=== PATIENT | male | born 1975 | race Caucasian/White ===

== ENCOUNTER 2020-03-06 13:16 | Emergency (ER) | payer OTHER, MEDICAID, SELFPAY ==
[2020-03-06] VITALS (8 sets, daily range): BP systolic 135–167; BP diastolic 60–88; PULSE 87–108; RESP 14–31; TEMP 36.6; O2SAT 94–97
--- NOTE | 2020-03-06 13:32 | ED_ITS ---
HPI - Nausea/Vomiting/Diarrhea <FUENTES Mcginnis - Last Filed: 03/06/20 15:48> General Chief complaint: Nausea/Vomiting/Diarrhea Stated complaint: nausea,vomiting Time Seen by Provider: 03/06/20 13:20 Source: patient and family Mode of arrival: Ambulatory Limitations: no limitations History of Present Illness HPI Narrative: The patient is a 44-year-old male nonsmoker with history of h ypertension who presents with his for multiple complaints. He states he passed out for few seconds while cutting blackberry bushes in his yard on Thursday. His witnessed this. They did not get help at that point time that he has not been evaluated since. Patient also notes that he has had consistent nausea, vomiting, diarrhea and abdominal distention ongoing for several months. He has not followed up with primary care provider regarding this. He denies any fevers, chest pain, states that he is short of breath with activity because ?I am a smoker. Related Data Previous Rx's Medication Instructions Recorded hydrochlorothiazide 12.5 mg PO QDAY 30 Days #0 cap 07/05/16 ondansetron 4 mg PO Q6H PRN #14 tab 03/06/20 Allergies Allergy/AdvReac Type Severity Reaction Status Date / Time Penicillins [PENICILLINS] Allergy Unknown Unverified 10/14/17 12:15 Review of Systems <FUENTES Mcginnis - Last Filed: 03/06/20 15:48> Review of Systems Narrative: GENERAL: Denies chills, fatigue, malaise, fever, sweats. HEENT: Denies sinus pain, ear pain, sore throat, difficulty swallowing, dizziness. RESPIRATORY: Denies dyspnea, cough, wheezing, hemoptysis, sputum. CARDIOVASCULAR: Denies chest pain, palpitations, orthopnea, edema, GASTROINTESTINAL: See HPI : Denies dysuria, frequency, incontinence, hematuria, urinary retention. MUSCULOSKELETAL: denies weakness, joint pain, or bony pain SKIN: Denies rash, skin lesions, or other NEUROLOGIC: See HPI PSYCHIATRIC: No concerning psychosocial issues. 12 point review of systems is negative except for those stated above Patient History <FUENTES Mcginnis - Last Filed: 03/06/20 15:48> Medical History (Updated 03/06/20 @ 15:32 by FUENTES Mcginnis) Hypertension (Acute) Social History Smoking Status: Never smoker Smoking Status: Never smoker Exam <FUENTES Mcginnis - Last Filed: 03/06/20 15:48> Narrative Exam Narrative: GENERAL: This is a well-nourished, well-developed patient, no acute distress HEAD: Atraumatic. Normocephalic. No temporal or scalp tenderness. EYES: Pupils equal round and reactive. Extraocular motions intact. No scleral icterus. No injection or drainage. ENT: Nose without bleeding, purulent drainage or septal hematoma. Throat without erythema, tonsillar hypertrophy or exudate. Uvula midline. Airway patent. NECK: Trachea midline. No JVD or lymphadenopathy. Supple, nontender, no meningeal signs. CARDIOVASCULAR: Regular rate and rhythm RESPIRATORY: Clear to auscultation. Breath sounds equal bilaterally. No wheezes, rales, or rhonchi. No cough. No increased respiratory effort. No accessory muscle use. GASTROINTESTINAL: Abdomen slightly distended, diffusely tender to palpation, active bowel sounds all 4 quadrants. No hepato-splenomegaly, or palpable masses. No guarding. EXTREMITIES: No clubbing, cyanosis, or edema. No joint tenderness, effusion, or edema noted. BACK: Nontender without deformity or crepitance. No flank tenderness. NEURO: AOx3. SKIN: No rash or erythema on visible skin Initial Vital Signs Initial Vital Signs: Vital Signs Temperature 97.8 F 03/06/20 13:20 Pulse Rate 108 H 03/06/20 13:20 Respiratory Rate 22 03/06/20 13:20 Blood Pressure 167/88 H 03/06/20 13:20 Pulse Oximetry 97 03/06/20 13:20 <Mami Adams DO - Last Filed: 03/07/20 07:14> Initial Vital Signs Initial Vital Signs: Vital Signs Temperature 97.8 F 03/06/20 13:20 Pulse Rate 108 H 03/06/20 13:20 Respiratory Rate 22 03/06/20 13:20 Blood Pressure 167/88 H 03/06/20 13:20 Pulse Oximetry 97 03/06/20 13:20 Scores <FUENTES Mcginnis - Last Filed: 03/06/20 15:48> GCS Geronimo coma scale eye opening: Spontaneous Geronimo coma scale verbal response: Orientated [place] coma scale motor response: Obey commands Geronimo coma scale total score: 15 Course <Suzan GARETT MortonP-BC - Last Filed: 03/06/20 15:48> Orders Ordered: Discontinued Medications Sodium Chloride (Normal Saline 0.9%) 1,000 mls @ 1,000 mls/hr IV BOLUS ONE Stop: 03/06/20 14:29 Last Infusion: 03/06/20 14:47 Dose: 0 mls/hr Documented by: Admin: 03/06/20 13:40 Dose: 1,000 mls/hr Documented by: DOLORES Ondansetron HCl (Zofran) 4 mg IV NOW ONE Stop: 03/06/20 13:31 Last Admin: 03/06/20 13:40 Dose: 4 mg Documented by: DOLORES Vital Signs Vital signs: Vital Signs - 8 hr 03/06/20 13:20 03/06/20 13:24 03/06/20 13:30 Temperature 97.8 F Pulse Rate 108 H 108 H 100 H Respiratory Rate 22 16 Blood Pressure 167/88 H 152/86 H 143/82 H Pulse Oximetry 97 97 95 03/06/20 14:00 03/06/20 14:01 03/06/20 14:30 Temperature Pulse Rate 87 87 92 H Respiratory Rate 14 16 15 Blood Pressure 135/60 Pulse Oximetry 95 95 94 03/06/20 14:31 03/06/20 15:00 Temperature Pulse Rate 94 H 93 H Respiratory Rate 18 31 H Blood Pressure 146/75 H Pulse Oximetry 95 95 <Mami Adams DO - Last Filed: 03/07/20 07:14> Orders Ordered: Discontinued Medications Sodium Chloride (Normal Saline 0.9%) 1,000 mls @ 1,000 mls/hr IV BOLUS ONE Stop: 03/06/20 14:29 Last Infusion: 03/06/20 14:47 Dose: 0 mls/hr Documented by: Admin: 03/06/20 13:40 Dose: 1,000 mls/hr Documented by: DOLORES Ondansetron HCl (Zofran) 4 mg IV NOW ONE Stop: 03/06/20 13:31 Last Admin: 03/06/20 13:40 Dose: 4 mg Documented by: DOLORES Vital Signs Vital signs: Vital Signs - 8 hr 03/06/20 13:20 03/06/20 13:24 03/06/20 13:30 Temperature 97.8 F Pulse Rate 108 H 108 H 100 H Respiratory Rate 22 16 Blood Pressure 167/88 H 152/86 H 143/82 H Pulse Oximetry 97 97 95 03/06/20 14:00 03/06/20 14:01 03/06/20 14:30 Temperature Pulse Rate 87 87 92 H Respiratory Rate 14 16 15 Blood Pressure 135/60 Pulse Oximetry 95 95 94 03/06/20 14:31 03/06/20 15:00 Temperature Pulse Rate 94 H 93 H Respiratory Rate 18 31 H Blood Pressure 146/75 H Pulse Oximetry 95 95 MDM - Nausea/Vomiting/Diarrhea <EDIE Mcginnis- - Last Filed: 03/06/20 15:48> Lab Data Attestation: I reviewed the patient's lab results. Result diagrams: 03/06/20 13:32 03/06/20 13:32 Labs: Lab Results 03/06/20 03/06/20 03/06/20 Range/Units 13:32 13:32 13:32 WBC 6.2 (4.5-11.0) X10^3/uL RBC 4.47 L (4.5-5.9) X10^6/uL Hgb 14.9 (13.5-17.5) g/dL Hct 42.8 (41-53) % MCV 95.8 (80-100) fL MCH 33.4 (26-34) PG MCHC 34.9 (30-36) % RDW 12.8 (11.6-14.8) % Plt Count 197 (150-400) X10^3/uL Neut % (Auto) 59.1 (50-75) % Lymph % (Auto) 26.3 (25-40) % Hughes % (Auto) 12.8 (3-14) % Eos % (Auto) 1.6 L (2-4) % Baso % (Auto) 0.2 (0-2) % Neut # (Auto) 3700 (3889-8328) /uL Lymph # (Auto) 1600 (1848-7418) /uL Hughes # (Auto) 800 (0-900) /uL Eos # (Auto) 100 (0-450) /uL Baso # (Auto) 0 (0-100) /uL PT 10.7 (10.1-12.7) SECONDS INR 0.9 (0.9-1.3) APTT 28 (26.4-36.2) SECONDS D-Dimer < 200 (<230) ng/mL Sodium 133 L (137-145) mmol/L Potassium 4.5 (3.4-5.1) mmol/L Chloride 101 (98-107) mmol/L Carbon Dioxide 25 (22-32) mmol/L BUN 14 (9-20) mg/dL Creatinine 0.96 (0.66-1.25) mg/dL Estimated GFR > 60.0 (>60) mL/min BUN/Creatinine Ratio 14.6 (6-22) Glucose 115 H (70-100) mg/dL Calcium 9.0 (8.4-10.2) mg/dL Total Bilirubin 0.9 (0.2-1.3) mg/dL AST 83 H (17-59) IU/L ALT 81 H (<50) IU/L Alkaline Phosphatase 74 (38-126) U/L Total Creatine Kinase 282 H (55-170) U/L CK-MB (CK-2) 1.32 (<2.37) ng/mL CK-MB (CK-2) Rel Index 0.5 L (1.5-5.0) % Troponin I < 0.012 (0.01-0.034) ng/mL Total Protein 6.8 (6.3-8.2) g/dL Albumin 3.9 (3.5-5.0) g/dL Globulin 2.9 (1.7-4.1) g/dL Albumin/Globulin Ratio 1.3 (1.0-2.8) Lipase 354 H (23-300) U/L Urine Dip Bedside Urine Glucose Negative Bedside Urine Bilirubin - Negative Bedside Urine Ketone - Negative Urine Specific [place] 1.015 Bedside Urine Occult Blood - Negative Bedside Urine Protein - Negative Bedside Urine Urobilinogen - Negative Bedside Urine Nitrite - Negative Bedside Urine Leukocytes - Negative Esterase Imaging Data Chest x-ray: Radiologist's Impression: [facility] [address] [place] [id number] XRay Report Signed Patient: Lisa Mojica#: [id number] : 1975Acct:[id number] Age/Sex: 44 / MDate of Service: 03/06/20 Loc: ED Accession Number: [id number] Procedure: XR chest 1V Ordering Provider: Suzan Morton PROCEDURE: XR CHEST 1V INDICATIONS: syncope TECHNIQUE: One view of the chest was acquired. COMPARISON: [facility], CHEST 1 VIEW, 07/05/2016, 17:54. FINDINGS: Surgical changes and devices: None. Lungs and pleura: Lungs are clear. No pleural effusions or pneumothorax. Mediastinum: Mediastinal contours appear normal. Heart size is normal. Bones and chest wall: No suspicious bony lesions. Overlying soft tissues appear unremarkable. IMPRESSION: Normal for age, source of current syncope symptoms is not seen. Dictated by: Clint Montalvo M.D. on 03/06/2020 at 14:06 Approved by: Clint Montalvo M.D. on 03/06/2020 at 14:07 CT scan - abdomen/pelvis: Radiologist's Impression: [address] [place] [address] CT Scan Report Signed Patient: Lisa Mojica#: [id number] : 1975Acct:[id number] Age/Sex: 44 / MDate of Service: 03/06/20 Loc: ED Accession Number: [id number] Procedure: CT abdomen pelvis w con Ordering Provider: Suzan Morton PROCEDURE: CT ABDOMEN PELVIS W CON INDICATIONS: abd pain, n/v/d x months TECHNIQUE: After the administration of intravenous contrast, 5 mm thick sections acquired from the diaphragm to the symphysis. 5 mm coronal and sagittal reformats were acquired. For radiation dose reduction, the following was used: automated exposure control, adjustment of mA and/or kV according to patient size. COMPARISON: None. FINDINGS: Image quality: Excellent. ABDOMEN: Lung bases: Lung bases are clear. Heart size is normal. Solid organs: Liver is normal in size and enhancement. Question mild surface nodularity. No suspicious masses. Mild diffuse hepatic steatosis. Gallbladder is unremarkable. Biliary system is non dilated. Pancreas enhances normally. Spleen is normal in size and enhancement. No adrenal nodules. Kidneys demonstrate normal size and enhancement, without hydronephrosis. Peritoneum and bowel: Bowel loops demonstrate normal wall thickness and caliber. No free fluid or air. Nodes and vessels: No retroperitoneal or mesenteric adenopathy by size criteria. Aorta and inferior vena cava are normal in size. Miscellaneous: No ventral hernias. PELVIS: Genitourinary: Bladder wall thickness is normal. Miscellaneous: No inguinal hernias or adenopathy. Bones: No suspicious bony lesions. No vertebral body compression fractures. Bilateral L5 pars defects with minimal anterolisthesis of L5 on S1. Bilateral L5-S1 foraminal narrowing. IMPRESSION: 1. Mild diffuse hepatic steatosis. 2. Question mild surface nodularity of the liver suggesting possible cirrhotic change. 3. Incidental note made of bilateral L5 pars defects with minimal anterolisthesis of L5 on S1. Dictated by: Jorge Gill M.D. on 03/06/2020 at 14:24 Approved by: Jorge Gill M.D. on 03/06/2020 at 14:27 ECG Data Attestation: I personally reviewed and interpreted this ECG as follows: Interpretation: Sinus rhythm. Ventricular rate 93. P.r. interval 152. QRS 90. viewed by Dr Adams MDM Narrative Medical decision making narrative: The patient is a 44-year-old male who presents with a chief complaint of syncope several days ago as well as nausea vomiting diarrhea that has been ongoing for several months this point. He appears well, nontoxic, is afebrile in no acute pain. EKG has no changes, troponin is negative. Will not repeat troponin as patient several days from his syncopal event. I discussed with patient the early possible cirrhotic findings and slightly elevated LFTs, and he admits to drinking about a 5th of hard alcohol per day. I encouraged him to decrease his drinking and follow up with primary care provider in the next few days. She does not believe that is old PCPs taking his new insurance, so given contact information to the [facility] health natural resources specialist. The patient is pain-free and hemodynamically stable throughout stay in the emergency department with no complaints or request. He was able to tolerate a p.o. trial prior to discharge, keeping down solids and liquids. He felt improved with Zofran, so I gave him a prescription thereof. Patient have no questions or concerns upon discharge and state understanding of return precautions as well as follow-up care. I did encourage and that if he has a syncopal event to seek help immediately rather than waiting several days. <Mami Adams, DO - Last Filed: 03/07/20 07:14> Lab Data Labs: Lab Results 03/06/20 03/06/20 03/06/20 Range/Units 13:32 13:32 13:32 WBC 6.2 (4.5-11.0) X10^3/uL RBC 4.47 L (4.5-5.9) X10^6/uL Hgb 14.9 (13.5-17.5) g/dL Hct 42.8 (41-53) % MCV 95.8 (80-100) fL MCH 33.4 (26-34) PG MCHC 34.9 (30-36) % RDW 12.8 (11.6-14.8) % Plt Count 197 (150-400) X10^3/uL Neut % (Auto) 59.1 (50-75) % Lymph % (Auto) 26.3 (25-40) % Hughes % (Auto) 12.8 (3-14) % Eos % (Auto) 1.6 L (2-4) % Baso % (Auto) 0.2 (0-2) % Neut # (Auto) 3700 (2366-0366) /uL Lymph # (Auto) 1600 (8056-0104) /uL Hughes # (Auto) 800 (0-900) /uL Eos # (Auto) 100 (0-450) /uL Baso # (Auto) 0 (0-100) /uL PT 10.7 (10.1-12.7) SECONDS INR 0.9 (0.9-1.3) APTT 28 (26.4-36.2) SECONDS D-Dimer < 200 (<230) ng/mL Sodium 133 L (137-145) mmol/L Potassium 4.5 (3.4-5.1) mmol/L Chloride 101 (98-107) mmol/L Carbon Dioxide 25 (22-32) mmol/L BUN 14 (9-20) mg/dL Creatinine 0.96 (0.66-1.25) mg/dL Estimated GFR > 60.0 (>60) mL/min BUN/Creatinine Ratio 14.6 (6-22) Glucose 115 H (70-100) mg/dL Calcium 9.0 (8.4-10.2) mg/dL Total Bilirubin 0.9 (0.2-1.3) mg/dL AST 83 H (17-59) IU/L ALT 81 H (<50) IU/L Alkaline Phosphatase 74 (38-126) U/L Total Creatine Kinase 282 H (55-170) U/L CK-MB (CK-2) 1.32 (<2.37) ng/mL CK-MB (CK-2) Rel Index 0.5 L (1.5-5.0) % Troponin I < 0.012 (0.01-0.034) ng/mL Total Protein 6.8 (6.3-8.2) g/dL Albumin 3.9 (3.5-5.0) g/dL Globulin 2.9 (1.7-4.1) g/dL Albumin/Globulin Ratio 1.3 (1.0-2.8) Lipase 354 H (23-300) U/L Urine Dip Bedside Urine Glucose Negative Bedside Urine Bilirubin - Negative Bedside Urine Ketone - Negative Urine Specific [place] 1.015 Bedside Urine Occult Blood - Negative Bedside Urine Protein - Negative Bedside Urine Urobilinogen - Negative Bedside Urine Nitrite - Negative Bedside Urine Leukocytes - Negative Esterase Discharge Plan Departure Patient Disposition: Home Clinical Impression: Nausea, vomiting and diarrhea Syncope Qualifiers: Syncope type: unspecified Qualified Code(s): R55 - Syncope and collapse Discharge Date/Time: 03/06/20 15:38 Instructions: DI for Syncope in Adults (Fainting), DI for Nausea -- Adult, DI for Vomiting -- Adult Activity Restrictions/Additional Instructions: Thank you for trusting us with your care today. As discussed, your exam, lab work and scans have come back well. Please follow-up with primary care provider. I have given you contact information to the [facility] natural resources specialist. They can help you identify new PCP if your previous PCP does not take your insurance. As discussed, please come back to the emergency department for any acute concerns, including chest pain, shortness of breath, passing out etcetera I sent a prescription of nausea medicine to [facility] in [place] Prescriptions: New ondansetron 4 mg tablet,disintegrating 4 mg PO Q6H PRN (Reason: nausea and vomiting) Qty: 14 RF: 0 No Action hydrochlorothiazide 12.5 MG capsule 12.5 mg PO QDAY 30 Days Qty: 0 RF: 0 Referrals: [facility] [Outside] [place] DO [Non-Staff] - <Mami Adams DO - Last Filed: 03/07/20 07:14> Cosign ED Attending Emmyature Attestation: I was immediately available in the department for consultation. Documentation has been reviewed. I agree with assessment and plan.
[2020-03-06 13:39] LABS: Add Manual Diff / Slide Review NO; Basophils Absolute Auto 0 /uL (0-100); Basophils Percent Auto 0.2 % (0-2); Eosinophils Absolute Auto 100 /uL (0-450); Eosinophils Percent Auto 1.6 % (2-4); Hematocrit 42.8 % (41-53); Hemoglobin 14.9 g/dL (13.5-17.5); Lymphocytes Absolute Auto 1600 /uL (1100-4500); Lymphocytes Percent Auto 26.3 % (25-40); Mean Corpuscular HGB Conc 34.9 % (30-36); Mean Corpuscular Hemoglobin 33.4 PG (26-34); Mean Corpuscular Volume 95.8 fL (80-100); Monocytes Absolute Auto 800 /uL (0-900); Monocytes Percent Auto 12.8 % (3-14); Neutrophils Absolute Auto 3700 /uL (1500-7000); Neutrophils Percent Auto 59.1 % (50-75); Platelet Count 197 X10^3/uL (150-400); Red Blood Cell Count 4.47 X10^6/uL (4.5-5.9); Red Cell Distribution Width 12.8 % (11.6-14.8); White Blood Cell Count 6.2 X10^3/uL (4.5-11.0)
[2020-03-06] MEDS: ONDANSETRON 4 MG/2 ML INJ IV (13:40)
[2020-03-06] MEDS: SODIUM CHLORIDE 0.9% 1,000 ML 1000 ML IV (13:40)
[2020-03-06 13:47] LABS: INR 0.9 (0.9-1.3); Prothrombin Time 10.7 SECONDS (10.1-12.7)
[2020-03-06 13:49] LABS: PTT Partial Thromboplastin Tim 28 SECONDS (26.4-36.2)
[2020-03-06 13:51] LABS: Alanine Aminotransferase 81 IU/L (<50); Albumin 3.9 g/dL (3.5-5.0); Albumin Globulin Ratio 1.3 (1.0-2.8); Alkaline Phosphatase 74 U/L (38-126); Aspartate Aminotransferase 83 IU/L (17-59); BUN Creatinine Ratio 14.6 (6-22); Bilirubin Total 0.9 mg/dL (0.2-1.3); Blood Urea Nitrogen 14 mg/dL (9-20); Carbon Dioxide 25 mmol/L (22-32); Chloride 101 mmol/L (98-107); Creatine Kinase 282 U/L (55-170); Estimated Glomerular Filt Rate > 60.0 mL/min (>60); Globulin 2.9 g/dL (1.7-4.1); Glucose 115 mg/dL (70-100); HEMOLYSIS < 15 (0-50); Lipase 354 U/L (23-300); Potassium 4.5 mmol/L (3.4-5.1); Sodium 133 mmol/L (137-145); Total Protein 6.8 g/dL (6.3-8.2)
[2020-03-06 14:03] LABS: Troponin I < 0.012 ng/mL (0.01-0.034)
[2020-03-06 14:06] LABS: CKMB % Relative Index 0.5 % (1.5-5.0); Creatine Kinase MB 1.32 ng/mL (<2.37)
--- NOTE | 2020-03-06 14:14 | DI.CT.S_ITS ---
PROCEDURE: CT ABDOMEN PELVIS W CON INDICATIONS: abd pain, n/v/d x months TECHNIQUE: After the administration of intravenous contrast, 5 mm thick sections acquired from the diaphragm to the symphysis. 5 mm coronal and sagittal reformats were acquired. For radiation dose reduction, the following was used: automated exposure control, adjustment of mA and/or kV according to patient size. COMPARISON: None. FINDINGS: Image quality: Excellent. ABDOMEN: Lung bases: Lung bases are clear. Heart size is normal. Solid organs: Liver is normal in size and enhancement. Question mild surface nodularity. No suspicious masses. Mild diffuse hepatic steatosis. Gallbladder is unremarkable. Biliary system is non dilated. Pancreas enhances normally. Spleen is normal in size and enhancement. No adrenal nodules. Kidneys demonstrate normal size and enhancement, without hydronephrosis. Peritoneum and bowel: Bowel loops demonstrate normal wall thickness and caliber. No free fluid or air. Nodes and vessels: No retroperitoneal or mesenteric adenopathy by size criteria. Aorta and inferior vena cava are normal in size. Miscellaneous: No ventral hernias. PELVIS: Genitourinary: Bladder wall thickness is normal. Miscellaneous: No inguinal hernias or adenopathy. Bones: No suspicious bony lesions. No vertebral body compression fractures. Bilateral L5 pars defects with minimal anterolisthesis of L5 on S1. Bilateral L5-S1 foraminal narrowing. IMPRESSION: 1. Mild diffuse hepatic steatosis. 2. Question mild surface nodularity of the liver suggesting possible cirrhotic change. 3. Incidental note made of bilateral L5 pars defects with minimal anterolisthesis of L5 on S1. Dictated by: Jorge Gill M.D. on 03/06/2020 at 14:24 Approved by: Jorge Gill M.D. on 03/06/2020 at 14:27
[2020-03-06 14:20] LABS: D Dimer < 200 ng/mL (<230)
== END 2020-03-06 15:38 | disposition home or self-care (01) ==
PROVIDERS: Emergency Provider Nurse Practitioner Family
DX: R11.2 Nausea with vomiting, unspecified (principal); R19.7 Diarrhea, unspecified; I10 Essential (primary) hypertension; R55 Syncope and collapse; R10.9 Unspecified abdominal pain
CPT/HCPCS: 36415; 71045; 74177; 80053; 81003; 82550; 82553; 83690; 84484; 85025; 85379; 85610; 85730; 93005; 96361; 96374; 99284; J2405; Q9967

== ENCOUNTER 2023-12-02 17:19 | Emergency (ER) | payer OTHER, SELFPAY ==
[2023-12-02 17:24] VITALS: BP 164/90; PULSE 81; RESP 15; TEMP 36.1; O2SAT 98; BMI 35.2
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
--- NOTE | 2023-12-02 17:41 | DI.US.S_ITS ---
PROCEDURE: US PERIPH VENOUS LOW EXTREM RT INDICATIONS: RLE swelling pain x 5 days. R/O DVT TECHNIQUE: Real-time imaging, as well as color and pulse Doppler interrogation, were performed of the lower extremity deep veins from the inguinal ligament to the popliteal fossa, with documentation of the visualized calf veins. COMPARISON: None. FINDINGS: The common femoral, femoral, popliteal, and the visualized calf veins are normally compressible, and free of intraluminal thrombus. Color and pulse Doppler demonstrate normal phasic intraluminal flow. There is normal augmentation response to distal compression maneuver. IMPRESSION: No findings of lower extremity deep venous thrombosis. Dictated by: Henna Worrell M.D. on 12/02/2023 at 19:30 Approved by: Henna Worrell M.D. on 12/02/2023 at 19:31
[2023-12-02 18:25] LABS: Add Manual Diff / Slide Review NO; Basophils Absolute Auto 100 /uL (0-100); Basophils Percent Auto 1.2 % (0-2); Eosinophils Absolute Auto 300 /uL (0-450); Eosinophils Percent Auto 3.3 % (2-4); Hematocrit 42.1 % (41-53); Hemoglobin 14.7 g/dL (13.5-17.5); Lymphocytes Absolute Auto 2200 /uL (1100-4500); Lymphocytes Percent Auto 26.4 % (25-40); Mean Corpuscular HGB Conc 35.1 % (30-36); Mean Corpuscular Volume 94.2 fL (80-100); Monocytes Absolute Auto 700 /uL (0-900); Monocytes Percent Auto 7.9 % (3-14); Neutrophils Absolute Auto 5100 /uL (1500-7000); Neutrophils Percent Auto 61.2 % (50-75); Platelet Count 222 X10^3/uL (150-400); Red Blood Cell Count 4.47 X10^6/uL (4.5-5.9); Red Cell Distribution Width 13.6 % (11.6-14.8); White Blood Cell Count 8.3 X10^3/uL (4.5-11.0)
[2023-12-02 18:27] LABS: Prothrombin Time 11.1 SECONDS (9.4-12.5)
[2023-12-02 18:30] LABS: PTT Partial Thromboplastin Tim 35 SECONDS (25.1-36.5)
[2023-12-02 18:35] LABS: Alanine Aminotransferase 40 IU/L (<50); Albumin 4.6 g/dL (3.5-5.0); Albumin Globulin Ratio 1.7 (1.0-2.8); Alkaline Phosphatase 77 U/L (38-126); Aspartate Aminotransferase 28 IU/L (17-59); BUN Creatinine Ratio 16.5 (6-22); Bilirubin Total 0.7 mg/dL (0.2-1.3); Blood Urea Nitrogen 14 mg/dL (9-20); C-Reactive Protein Quant < 0.5 mg/dL (<1.0); Calcium 9.2 mg/dL (8.4-10.2); Carbon Dioxide 22 mmol/L (22-32); Chloride 107 mmol/L (98-107); Estimated Glomerular Filt Rate > 60 mL/min (>60); Globulin 2.7 g/dL (1.7-4.1); Glucose 106 mg/dL (70-100); HEMOLYSIS < 15 (0-50); Potassium 4.1 mmol/L (3.4-5.1); Sodium 137 mmol/L (137-145); Total Protein 7.3 g/dL (6.3-8.2)
[2023-12-02 18:55] LABS: Erythrocyte Sedimentation Rate 3 MM/HR (0-15)
[2023-12-02 19:24] VITALS: BP 159/81; PULSE 80; O2SAT 95
== END 2023-12-02 19:24 | disposition home or self-care (01) ==
PROVIDERS: Emergency Provider Physician Assistant Medical
DX: S85.901A Unspecified injury of unspecified blood vessel at lower leg level, right leg, initial encounter (principal); I10 Essential (primary) hypertension; F17.200 Nicotine dependence, unspecified, uncomplicated; X58.XXXA Exposure to other specified factors, initial encounter
CPT/HCPCS: 36415; 80053; 85025; 85610; 85651; 85730; 86140; 93971; 99283